=== PATIENT | male | born 1940 | race Caucasian/White ===

== ENCOUNTER 2017-05-28 09:38 | Emergency (ER) | payer MEDICAID, MEDICARE ==
[2017-05-28 09:48] VITALS: BP 179/81
--- NOTE | 2017-05-28 10:22 | EDM.PDOC ---
ED HPI GENERAL MEDICAL PROBLEM - General Chief Complaint: General Stated Complaint: fish hook in ear Time Seen by Provider: 05/28/17 09:50 Source of Information: Reports: Patient History Limitations: Reports: No Limitations - History of Present Illness INITIAL COMMENTS - FREE TEXT/NARRATIVE: This is a 76yo M here for a fish hook in the left pinna. Patient states he has had a tetanus in the past 5 yrs. Onset: Sudden Location: Reports: Other (left ear) Associated Symptoms: Reports: No Other Symptoms Left Ear Pain Score (Numeric/FACES): 1 Past Medical History HEENT History: Reports: Impaired Vision Cardiovascular History: Reports: Hypertension - Past Surgical History HEENT Surgical History: Reports: None Social & Family History - Tobacco Use Smoking Status *Q: Former Smoker Used Tobacco, but Quit: Yes Month Tobacco Last Used: 40 years ago Second Hand Smoke Exposure: No - Caffeine Use Caffeine Use: Reports: Coffee Other Caffeine Use: 1-2 cups daily - Alcohol Use Number of Drinks Per Day: 1 - Recreational Drug Use Recreational Drug Use: No ED ROS GENERAL - Review of Systems Review Of Systems: ROS reveals no pertinent complaints other than HPI. ED EXAM, GENERAL - Physical Exam Exam: See Below Exam Limited By: No Limitations General Appearance: Alert, WD/WN, No Apparent Distress Ears: Other (fish hook of the left pinna) Neurological: Alert, Oriented, CN II-XII Intact Psychiatric: Normal Affect, Normal Mood Skin Exam: Warm, Dry ED GENERAL MEDICAL PROCEDURES - Additional/Other Procedure(s) Other (Free Text) Procedure(s): Left ear prepped sterilely, isolated 3 prong hook by removing rest of lure. Numbed with 0.3mL lidocaine with a 25ga needle. 18ga needle used to track robby and removed without complications. Patient tolerated procedure well with no concerns. Course - Vital Signs Last Recorded V/S: Last Vital Signs Temp 36.6 C 05/28/17 09:44 Pulse 126 H 05/28/17 09:44 Resp 20 05/28/17 09:44 BP 179/81 H 05/28/17 09:44 Pulse Ox 95 05/28/17 09:44 Departure - Departure Time of Disposition: 10:15 Disposition: Home, Self-Care 01 Condition: Good Clinical Impression: Fish hook injury of pinna Qualifiers: Encounter type: initial encounter Qualified Code(s): S09.91XA - Unspecified injury of ear, initial encounter - Discharge Information Instructions: Puncture Wound Referrals: PCP,Unknown [Primary Care Provider] - Forms: ED Department Discharge - Problem List & Annotations (1) Fish hook injury of pinna SNOMED Code(s): 387567071 Code(s): S09.91XA - UNSPECIFIED INJURY OF EAR, INITIAL ENCOUNTER Status: Acute Qualifiers: Encounter type: initial encounter Qualified Code(s): S09.91XA - Unspecified injury of ear, initial encounter - Problem List Review Problem List Initiated/Reviewed/Updated: Yes - Assessment/Plan Plan: Counseled on wound care and f/u as needed. Discussed return to clinic or ER for further concerns. Tetanus addressed. Discussed monitoring for infection or abscess.
== END 2017-05-28 10:09 | disposition home or self-care (01) ==
LOC: LB.ED 09:38
DX: S00.452A Superficial foreign body of left ear, initial encounter (principal); H54.7 Unspecified visual loss; I10 Essential (primary) hypertension; Z87.891 Personal history of nicotine dependence; W45.8XXA Other foreign body or object entering through skin, initial encounter
CPT/HCPCS: 99282; 99283